=== PATIENT | female | born 1965 | race Hispanic/Latino ===

== ENCOUNTER 2017-07-31 09:54 | Outpatient (CLI) | payer OTHER ==
[2017-07-31] MEDS ORDERED: XYLOCAINE TOPICAL 2% ONE (11:12)
[2017-07-31] MEDS ORDERED: XYLOCAINE TOPICAL 2% TP ONE (11:12)
== END 2017-07-31 09:55 | disposition home or self-care (01) ==
LOC: WOUND 09:54
PROVIDERS: ATTEND Surgery
DX: S81.801A Unspecified open wound, right lower leg, initial encounter (principal); F41.9 Anxiety disorder, unspecified; Z87.891 Personal history of nicotine dependence; Z72.89 Other problems related to lifestyle; X58.XXXA Exposure to other specified factors, initial encounter; Y93.89 Activity, other specified; Y92.89 Other specified places as the place of occurrence of the external cause; Y99.8 Other external cause status
CPT/HCPCS: 11042; 11045; G0463

== ENCOUNTER 2017-08-07 09:45 | Outpatient (CLI) | payer OTHER ==
[2017-08-07] MEDS ORDERED: XYLOCAINE TOPICAL 4% TP ONE ×2 (10:31→14:21)
== END 2017-08-07 09:46 | disposition home or self-care (01) ==
LOC: WOUND 09:45
PROVIDERS: ATTEND Surgery
DX: S81.801D Unspecified open wound, right lower leg, subsequent encounter (principal); F41.9 Anxiety disorder, unspecified; Z87.891 Personal history of nicotine dependence; Z72.89 Other problems related to lifestyle; X58.XXXD Exposure to other specified factors, subsequent encounter

== ENCOUNTER 2017-08-14 09:42 | Outpatient (CLI) | payer OTHER ==
[2017-08-14] MEDS ORDERED: XYLOCAINE TOPICAL 4% TP ONE (11:00)
== END 2017-08-14 09:43 | disposition home or self-care (01) ==
LOC: WOUND 09:42
PROVIDERS: ATTEND Surgery
DX: S81.801D Unspecified open wound, right lower leg, subsequent encounter (principal); F41.9 Anxiety disorder, unspecified; Z87.891 Personal history of nicotine dependence; Z72.89 Other problems related to lifestyle; X58.XXXD Exposure to other specified factors, subsequent encounter

== ENCOUNTER 2017-08-21 08:19 | Outpatient (CLI) | payer OTHER ==
[2017-08-21] MEDS ORDERED: XYLOCAINE TOPICAL 4% TP ONE ×2 (08:32→08:41)
== END 2017-08-21 08:20 | disposition home or self-care (01) ==
LOC: WOUND 08:19
PROVIDERS: ATTEND Surgery
DX: S81.801D Unspecified open wound, right lower leg, subsequent encounter (principal); F41.9 Anxiety disorder, unspecified; Z87.891 Personal history of nicotine dependence; Z72.89 Other problems related to lifestyle; X58.XXXD Exposure to other specified factors, subsequent encounter

== ENCOUNTER 2017-08-28 09:43 | Outpatient (CLI) | payer OTHER ==
[2017-08-28] MEDS ORDERED: XYLOCAINE TOPICAL 4% TP ONE (10:24)
== END 2017-08-28 09:44 | disposition home or self-care (01) ==
LOC: WOUND 09:43
PROVIDERS: ATTEND Surgery
DX: S81.801D Unspecified open wound, right lower leg, subsequent encounter (principal); F41.9 Anxiety disorder, unspecified; Z87.891 Personal history of nicotine dependence; Z72.89 Other problems related to lifestyle; X58.XXXD Exposure to other specified factors, subsequent encounter
CPT/HCPCS: 87075; 87116

== ENCOUNTER 2017-09-04 09:43 | Outpatient (CLI) | payer OTHER ==
[2017-09-04] MEDS ORDERED: XYLOCAINE TOPICAL 4% TP ONE ×2 (10:25→10:27)
== END 2017-09-04 09:44 | disposition home or self-care (01) ==
LOC: WOUND 09:43
PROVIDERS: ATTEND Surgery
DX: S81.801D Unspecified open wound, right lower leg, subsequent encounter (principal); F41.9 Anxiety disorder, unspecified; Z87.891 Personal history of nicotine dependence; Z72.89 Other problems related to lifestyle; X58.XXXD Exposure to other specified factors, subsequent encounter

== ENCOUNTER 2017-09-11 09:39 | Outpatient (CLI) | payer OTHER ==
[2017-09-11] MEDS ORDERED: XYLOCAINE TOPICAL 4% TP ONE ×2 (10:13→10:23)
[2017-09-11] MEDS ORDERED: SODIUM CHLORIDE FLUSH SYRINGE 10 ML IV ONE ×2 (10:30→11:00)
== END 2017-09-11 09:40 | disposition home or self-care (01) ==
LOC: WOUND 09:39
PROVIDERS: ATTEND Surgery
DX: S81.801D Unspecified open wound, right lower leg, subsequent encounter (principal); F41.9 Anxiety disorder, unspecified; Z87.891 Personal history of nicotine dependence; Z72.89 Other problems related to lifestyle

== ENCOUNTER 2017-09-18 09:42 | Outpatient (CLI) | payer OTHER ==
[2017-09-18] MEDS ORDERED: XYLOCAINE TOPICAL 4% TP ONE ×2 (10:27→10:38)
[2017-09-18] MEDS ORDERED: SODIUM CHLORIDE FLUSH SYRINGE 10 ML IV ONE (10:54)
== END 2017-09-18 09:43 | disposition home or self-care (01) ==
LOC: WOUND 09:42
PROVIDERS: ATTEND Surgery
DX: S81.801D Unspecified open wound, right lower leg, subsequent encounter (principal); F41.9 Anxiety disorder, unspecified; Z87.891 Personal history of nicotine dependence; Z72.89 Other problems related to lifestyle; X58.XXXD Exposure to other specified factors, subsequent encounter

== ENCOUNTER 2017-09-25 09:44 | Outpatient (CLI) | payer OTHER ==
[2017-09-25] MEDS ORDERED: XYLOCAINE TOPICAL 4% TP ONE ×2 (10:10→11:41)
[2017-09-25] MEDS ORDERED: SODIUM CHLORIDE FLUSH SYRINGE 10 ML IV ONE (11:41)
== END 2017-09-25 09:45 | disposition home or self-care (01) ==
LOC: WOUND 09:44
PROVIDERS: ATTEND Surgery
DX: S81.801D Unspecified open wound, right lower leg, subsequent encounter (principal); F41.9 Anxiety disorder, unspecified; Z87.891 Personal history of nicotine dependence; Z72.89 Other problems related to lifestyle; X58.XXXD Exposure to other specified factors, subsequent encounter

== ENCOUNTER 2017-10-09 09:51 | Outpatient (CLI) | payer OTHER ==
[2017-10-09] MEDS ORDERED: XYLOCAINE TOPICAL 4% TP ONE (10:31)
[2017-10-10] MEDS ORDERED: XYLOCAINE TOPICAL 4% TP ONE (08:41)
== END 2017-10-09 09:52 | disposition home or self-care (01) ==
LOC: WOUND 09:51
PROVIDERS: ATTEND Surgery
DX: S81.801D Unspecified open wound, right lower leg, subsequent encounter (principal); F41.9 Anxiety disorder, unspecified; Z87.891 Personal history of nicotine dependence; Z72.89 Other problems related to lifestyle; X58.XXXD Exposure to other specified factors, subsequent encounter
CPT/HCPCS: C5271; Q4158; C5272

== ENCOUNTER 2017-10-16 09:36 | Outpatient (CLI) | payer OTHER ==
[2017-10-16] MEDS ORDERED: XYLOCAINE TOPICAL 4% TP ONE (10:27)
== END 2017-10-16 09:37 | disposition home or self-care (01) ==
LOC: WOUND 09:36
PROVIDERS: ATTEND Surgery
DX: S81.801D Unspecified open wound, right lower leg, subsequent encounter (principal); F41.8 Other specified anxiety disorders; Z87.891 Personal history of nicotine dependence; Z72.89 Other problems related to lifestyle; X58.XXXD Exposure to other specified factors, subsequent encounter
CPT/HCPCS: 99214; G0463

== ENCOUNTER 2017-10-23 09:41 | Outpatient (CLI) | payer OTHER ==
[2017-10-23] MEDS ORDERED: XYLOCAINE TOPICAL 4% TP ONE ×2 (10:25→10:35)
[2017-10-23] MEDS ORDERED: SODIUM CHLORIDE FLUSH SYRINGE 10 ML IV ONE (12:10)
== END 2017-10-23 09:42 | disposition home or self-care (01) ==
LOC: WOUND 09:41
PROVIDERS: ATTEND Surgery
DX: S81.801D Unspecified open wound, right lower leg, subsequent encounter (principal); F41.9 Anxiety disorder, unspecified; Z87.891 Personal history of nicotine dependence; Z72.89 Other problems related to lifestyle; X58.XXXD Exposure to other specified factors, subsequent encounter

== ENCOUNTER 2017-10-30 09:41 | Outpatient (CLI) | payer OTHER ==
[2017-10-30] MEDS ORDERED: NACL 0.9% 500 ML IR ONE (10:38)
[2017-10-30] MEDS ORDERED: SILVER NITRATE TP ONE ×2 (10:45→16:33)
[2017-10-30] MEDS ORDERED: XYLOCAINE TOPICAL 4% TP ONE (16:32)
[2017-10-30] MEDS ORDERED: NACL 0.9% 500 ML 500 ML IV SCH (16:36)
== END 2017-10-30 09:42 | disposition home or self-care (01) ==
LOC: WOUND 09:41
PROVIDERS: ATTEND Surgery
DX: S81.801D Unspecified open wound, right lower leg, subsequent encounter (principal); F41.9 Anxiety disorder, unspecified; Z87.891 Personal history of nicotine dependence; X58.XXXD Exposure to other specified factors, subsequent encounter
CPT/HCPCS: 17250

== ENCOUNTER 2017-11-06 09:56 | Outpatient (CLI) | payer OTHER ==
[2017-11-06] MEDS ORDERED: XYLOCAINE TOPICAL 4% TP ONE ×2 (10:11→10:15)
[2017-11-06] MEDS ORDERED: NACL 0.9% 500 ML IR ONE (10:27)
[2017-11-06] MEDS ORDERED: NACL 0.9% IR PRN (16:14)
== END 2017-11-06 09:57 | disposition home or self-care (01) ==
LOC: WOUND 09:56
PROVIDERS: ATTEND Surgery
DX: S81.801D Unspecified open wound, right lower leg, subsequent encounter (principal); F41.9 Anxiety disorder, unspecified; X58.XXXD Exposure to other specified factors, subsequent encounter; Z87.891 Personal history of nicotine dependence; Z72.89 Other problems related to lifestyle

== ENCOUNTER 2017-11-13 09:42 | Outpatient (CLI) | payer OTHER ==
[2017-11-13] MEDS ORDERED: XYLOCAINE TOPICAL 4% TP ONE ×2 (09:53→09:58)
[2017-11-13] MEDS ORDERED: SILVER NITRATE TP ONE ×2 (10:04→14:47)
== END 2017-11-13 09:43 | disposition home or self-care (01) ==
LOC: WOUND 09:42
PROVIDERS: ATTEND Surgery
DX: S81.801D Unspecified open wound, right lower leg, subsequent encounter (principal); F41.9 Anxiety disorder, unspecified; Z87.891 Personal history of nicotine dependence; Z72.89 Other problems related to lifestyle; X58.XXXD Exposure to other specified factors, subsequent encounter
CPT/HCPCS: 17250; G0463

== ENCOUNTER 2017-11-20 09:42 | Outpatient (CLI) | payer OTHER ==
[2017-11-20] MEDS ORDERED: XYLOCAINE TOPICAL 4% TP ONE ×2 (10:54→10:58)
== END 2017-11-20 09:43 | disposition home or self-care (01) ==
LOC: WOUND 09:42
PROVIDERS: ATTEND Surgery
DX: S81.801D Unspecified open wound, right lower leg, subsequent encounter (principal); F41.9 Anxiety disorder, unspecified; Z72.89 Other problems related to lifestyle; Z87.891 Personal history of nicotine dependence; X58.XXXD Exposure to other specified factors, subsequent encounter

== ENCOUNTER 2017-11-27 09:41 | Outpatient (CLI) | payer OTHER ==
[2017-11-27] MEDS ORDERED: XYLOCAINE TOPICAL 2% 5ML ONE (09:59)
[2017-11-27] MEDS ORDERED: XYLOCAINE TOPICAL 2% 5ML TP ONE (10:03)
== END 2017-11-27 09:42 | disposition home or self-care (01) ==
LOC: WOUND 09:41
PROVIDERS: ATTEND Surgery
DX: S81.801D Unspecified open wound, right lower leg, subsequent encounter (principal); F41.9 Anxiety disorder, unspecified; Z87.891 Personal history of nicotine dependence; Z72.89 Other problems related to lifestyle; X58.XXXD Exposure to other specified factors, subsequent encounter

== ENCOUNTER 2017-12-11 09:50 | Outpatient (CLI) | payer OTHER ==
[2017-12-11] MEDS ORDERED: XYLOCAINE TOPICAL 2% 5ML ONE (10:08)
[2017-12-11] MEDS ORDERED: XYLOCAINE TOPICAL 2% 5ML TP ONE (11:00)
== END 2017-12-11 09:51 | disposition home or self-care (01) ==
LOC: WOUND 09:50
PROVIDERS: ATTEND Surgery
DX: S81.801D Unspecified open wound, right lower leg, subsequent encounter (principal); F41.9 Anxiety disorder, unspecified; Z87.891 Personal history of nicotine dependence; Z72.89 Other problems related to lifestyle; X58.XXXD Exposure to other specified factors, subsequent encounter
CPT/HCPCS: 97597

== ENCOUNTER 2017-12-18 09:45 | Outpatient (CLI) | payer OTHER | END 2017-12-18 09:46 | disposition home or self-care (01) | LOC: WOUND 09:45 | PROVIDERS: ATTEND Surgery | DX: S81.801D Unspecified open wound, right lower leg, subsequent encounter (principal); F41.9 Anxiety disorder, unspecified; Z87.891 Personal history of nicotine dependence; Z72.89 Other problems related to lifestyle; X58.XXXD Exposure to other specified factors, subsequent encounter | CPT/HCPCS: 99213; G0463 ==